=== PATIENT | male | born 1960 | race Two or more races ===

== ENCOUNTER 2018-09-04 14:08 | Outpatient (CLI) | payer OTHER | END 2018-09-04 14:14 | disposition home or self-care (01) | LOC: RAD 14:08 | DX: M54.2 Cervicalgia (principal) ==

== ENCOUNTER 2020-01-28 08:33 | Outpatient (CLI) | payer OTHER | END 2020-01-28 08:37 | disposition home or self-care (01) | LOC: SONOGRAMA 08:33 | PROVIDERS: ATTEND Pathology Anatomic Pathology & Clinical Pathology | DX: E04.1 Nontoxic single thyroid nodule (principal) ==